=== PATIENT | male | born 1980 | race Caucasian/White ===

== ENCOUNTER 2022-10-24 17:08 | Emergency (ER) | payer BC ==
[~2022-10-24] VITALS: Ht 190.5 cm; Wt 90.7 kg
--- NOTE | 2022-10-24 17:19 | NUR ---
PT IS IN ROOM #1B. DR WORLEY EVALUATED THE PT.
[2022-10-24] MEDS ORDERED: HYDROCODONE/APAP 5-325MG TABLET PO ONE (17:30)
[2022-10-24] MEDS ORDERED: IBUPROFEN 400 MG TABLET PO ONE (17:30)
[2022-10-24] MEDS ORDERED: ACETAMINOPHEN 325 MG TABLET PO ONE (17:30)
[2022-10-24] MEDS ORDERED: ACETAMINOPHEN 325 MG TABLET ONE (17:35)
[2022-10-24] MEDS ORDERED: HYDROCODONE/APAP 5-325MG TABLET ONE (17:36)
[2022-10-24] MEDS ORDERED: IBUPROFEN 400 MG TABLET ONE (17:36)
[2022-10-24] MEDS ORDERED: HYDR-4209 PO (18:11)
[2022-10-24] MEDS ORDERED: IBUP-1953 PO (18:11)
[2022-10-24] MEDS ORDERED: ACET-2154 PO (18:11)
--- NOTE | 2022-10-24 18:26 | NUR ---
PT WAS D/C'd TO HOME. D/C INSTRUCTIONS GIVEN TO THE PT BY DR WORLEY.
[2022-10-24 18:27] VITALS: BP 136/78
== END 2022-10-24 18:28 | disposition home or self-care (01) ==
LOC: ER 17:15 → EDBD 17:15 → ER 18:28
DX: M51.26 Other intervertebral disc displacement, lumbar region (principal); F17.210 Nicotine dependence, cigarettes, uncomplicated; Z88.0 Allergy status to penicillin; Z79.1 Long term (current) use of non-steroidal anti-inflammatories (NSAID); Z79.899 Other long term (current) drug therapy
CPT/HCPCS: A4663